=== PATIENT | male | born 1965 | race Two or more races ===

== ENCOUNTER 2023-09-08 09:35 | Outpatient (CLI) | payer OTHER ==
[2023-09-08 10:55] LABS: CREATININE SERUM 0.98 mg/dL (0.70-1.30)
== END 2023-09-08 09:36 | disposition home or self-care (01) ==
LOC: LAB 09:35
PROVIDERS: ATTEND Radiology Diagnostic Radiology
DX: R10.30 Lower abdominal pain, unspecified (principal)

== ENCOUNTER 2023-09-09 10:19 | Outpatient (CLI) | payer OTHER | END 2023-09-09 10:20 | disposition home or self-care (01) | LOC: TOM 10:19 | DX: R10.84 Generalized abdominal pain (principal) | CPT/HCPCS: 74177; Q9965 ==